=== PATIENT | female | born 1995 | race Caucasian/White ===

== ENCOUNTER → 2024-06-26 13:37 | Outpatient (CLI) | payer OTHER, SELFPAY ==
[2024-06-26 16:20] LABS: Urine N gonorrhoeae NOT DETECTED
[2024-06-26 16:28] LABS: Urine Chlamydia NOT DETECTED
== END ==
PROVIDERS: Visit Provider Obstetrics & Gynecology
DX: Z34.01 Encounter for supervision of normal first pregnancy, first trimester (principal); Z3A.11 11 weeks gestation of pregnancy
CPT/HCPCS: 87491; 87591

== ENCOUNTER → 2024-06-26 14:09 | Outpatient (CLI) | payer OTHER, SELFPAY ==
[2024-06-26 15:14] LABS: Natera Collection Specimen Collected
[2024-06-26 15:18] LABS: Add Manual Diff / Slide Review NO; Basophils Absolute Auto 0 /uL (0-100); Basophils Percent Auto 0.3 % (0-2); Eosinophils Absolute Auto 400 /uL (0-450); Eosinophils Percent Auto 3.2 % (2-4); Hematocrit 34.1 % (36-46); Hemoglobin 11.6 g/dL (12.0-16.0); Lymphocytes Absolute Auto 1800 /uL (1100-4500); Lymphocytes Percent Auto 15.9 % (25-40); Mean Corpuscular HGB Conc 33.9 % (30-36); Mean Corpuscular Hemoglobin 27.7 PG (26-34); Mean Corpuscular Volume 81.7 fL (80-100); Monocytes Absolute Auto 500 /uL (0-900); Monocytes Percent Auto 4.5 % (3-14); Neutrophils Absolute Auto 8800 /uL (1500-7000); Neutrophils Percent Auto 76.1 % (50-75); Platelet Count 264 X10^3/uL (150-400); Red Blood Cell Count 4.18 X10^6/uL (4.0-5.2); White Blood Cell Count 11.6 X10^3/uL (4.5-11.0)
[2024-06-26 17:56] LABS: Hepatitis B Surface Antigen NEGATIVE s/c (NEGATIVE); Rubella Antibody IgG 2.6 IU/mL (>15)
[2024-06-26 18:15] LABS: HIV 1 & 2 Ab/Ag 4th Gen Combo NEGATIVE (NEGATIVE); Hep C Virus Ab w/Reflex Quant NEGATIVE s/c (NEGATIVE)
[2024-06-27 06:37] LABS: Toxoplasma IgG Interp Negative (.); Toxoplasma gohndii IgG <3.0 IU/mL (0.0-7.1)
[2024-06-27 08:39] LABS: RPR Screen Non Reactive (Non Reactive)
[2024-06-27 09:36] LABS: Varicella IgG Antibody Reactive (Non Reactive)
[2024-06-29 11:09] LABS: Parvovirus B19 IgM 0.1 index (0.0-0.8)
== END ==
PROVIDERS: PCP Family Medicine; Referring Provider Obstetrics & Gynecology; Visit Provider Obstetrics & Gynecology
DX: Z34.01 Encounter for supervision of normal first pregnancy, first trimester (principal); Z3A.11 11 weeks gestation of pregnancy
CPT/HCPCS: 36415; 80055; 86644; 86695; 86696; 86747; 86777; 86778; 86787; 86803; 86850; 86900; 86901; 87086; 87389; 87491; 87591

== ENCOUNTER → 2024-08-18 07:02 | Outpatient (CLI) | payer OTHER, SELFPAY ==
--- NOTE | 2024-08-18 07:03 | DI.US.S_ITS ---
PROCEDURE: US OB >= 14 WEEKS FETUS INDICATIONS: 20 week anatomy scan OUTSIDE/PRIOR DATING DATA: Last menstrual period (LMP): 04/09/2024. LMP-based estimated date of delivery (KYLIE): 01/14/2025. First dating scan (date and location): Unknown. Estimated date of delivery (KYLIE) from first dating scan: Unknown. The calculations are made using the clinical KYLIE of 01/14/2025. TECHNIQUE: Real-time scanning was performed of the fetus, with image documentation and biometric measurements. COMPARISON: None. FINDINGS: General: A single living intrauterine gestation is present. Presentation: Breech. Placenta: Placental position is anterior , without previa. Amniotic fluid index: 11.8 cm, normal range is 5-24 cm. Single deepest vertical pocket is 3.4 cm. heart rate: 153 beats per minute. Maternal cervical canal: 4.2 cm long. Normal lower limit is 2.5 cm. biometrics: Biparietal diameter: 4.2 cm 18 weeks 5 days Head circumference: 16.1 cm 18 weeks 6 days Abdominal circumference: 13.8 cm 19 weeks 2 days Femur length: 2.7 cm 18 weeks 1 day Clinically estimated gestational age: 18 weeks 5 days Composite gestational age from present scan: 18 weeks 5 days Estimated weight and percentile: 235 g, 47th percentile Anatomic survey: Neuro: Ventricles are non-dilated at less than 10 mm. Cisterna magna is normal at 3-11 mm. Cerebellum is normal in size and morphology. Nuchal skin fold: Normal at less than 6 mm between 14-21 weeks gestational age. Face: Nose and lips, facial profile are normal. Spine: No evidence for spina bifida. Heart: 4-chambered heart is not well seen. There are normal ventricular outflow tracts. Diaphragm: Diaphragm is intact. Stomach: Left-sided stomach is present. Kidneys: No hydronephrosis. Normal is less than 5 mm in 2nd trimester, less than 7 mm in 3rd trimester. Cord: 3-vessel cord has orthotopic insertion. Bladder: Normal in size. Extremities: All 4 extremities identified. IMPRESSION: Single live intrauterine with gestational age of 18 weeks 5 days. Four-chamber heart is suboptimally visualized. Follow-up imaging is recommended. We strive to produce accurate, complete, and clear reports of imaging services. To assist us in improving patient care, this report was composed using standard report templates and voice recognition software. Therefore, it may contain abnormal punctuation, insertions and/or omissions. Occasional wrong-word or sound-alike substitutions may occur. Though we review the report and make efforts to correct it, we do recommend that the report be read carefully in proper context to recognize any text inaccuracies. Dictated by: Cyndy Kimble M.D. on 08/18/2024 at 12:55 Approved by: Cyndy Kimble M.D. on 08/18/2024 at 13:13
== END ==
PROVIDERS: PCP Family Medicine; Referring Provider Student in an Organized Health Care Education/Training Program; Visit Provider Student in an Organized Health Care Education/Training Program
DX: Z36.0 Encounter for antenatal screening for chromosomal anomalies (principal); Z3A.18 18 weeks gestation of pregnancy
CPT/HCPCS: 76811

== ENCOUNTER → 2024-08-31 14:56 | Outpatient (CLI) | payer OTHER, SELFPAY | PROVIDERS: PCP Family Medicine; Visit Provider Obstetrics & Gynecology | DX: R82.998 Other abnormal findings in urine (principal) | CPT/HCPCS: 87086 ==

== ENCOUNTER 2024-10-01 12:18 | Outpatient (CLI) | payer OTHER, SELFPAY ==
--- NOTE | 2024-10-01 12:25 | DI.US.S_ITS ---
PROCEDURE: US OB LIMITED INDICATIONS: abdominal pain OUTSIDE/PRIOR DATING DATA: Last menstrual period (LMP): 04/09/2024. LMP-based estimated date of delivery (KYLIE): 01/14/2025. First dating scan (date and location): Unknown Estimated date of delivery (KYLIE) from first dating scan: Unknown. The calculations are made using the clinical KYLIE of 01/14/2025. TECHNIQUE: Real-time scanning was performed of the fetus, with image documentation and biometric measurements. COMPARISON: [facility], , OB >= 14 WEEKS FETUS, 08/18/2024, 7:09. FINDINGS: General: A single living intrauterine gestation is present. Presentation: Vertex. Placenta: Placental position is anterior , without previa. Amniotic fluid index: 17.5 cm, normal range is 5-24 cm. Single deepest vertical pocket is 6.6 cm. heart rate: 147 beats per minute. Maternal cervical canal: 4.2 cm long. Normal lower limit is 2.5 cm. biometrics: Clinically estimated gestational age: 25 weeks 0 days Other: 4 chambered heart is within normal limits. IMPRESSION: Single live intrauterine with gestational age of 25 weeks 0 days. No evidence of abruption. 4 chambered heart is within normal limits. We strive to produce accurate, complete, and clear reports of imaging services. To assist us in improving patient care, this report was composed using standard report templates and voice recognition software. Therefore, it may contain abnormal punctuation, insertions and/or omissions. Occasional wrong-word or sound-alike substitutions may occur. Though we review the report and make efforts to correct it, we do recommend that the report be read carefully in proper context to recognize any text inaccuracies. Dictated by: Cyndy Kimble M.D. on 10/01/2024 at 14:14 Approved by: Cyndy Kimble M.D. on 10/01/2024 at 14:20
[2024-10-01 12:51] LABS: Appearance Urine UA CLEAR; Bilirubin Urine UA NEGATIVE (NEGATIVE); Color Urine UA YELLOW; Glucose Urine UA NEGATIVE (Negative); Ketones Urine UA NEGATIVE (NEGATIVE); Leukocyte Esterase Urine UA 1+ (NEGATIVE); Nitrite Urine UA NEGATIVE (Negative); Occult Blood Urine UA NEGATIVE (Negative); Protein Urine UA NEGATIVE (Negative); Specific Gravity Urine UA <=1.005 (1.000-1.035); Urobilinogen Urine UA 0.2 E.U./dL (0.2)
[2024-10-01 13:03] LABS: Amorphous Sediment Urine 2+; Bacteria Urine Occasional (0-1); RBC Urine None Seen (0-5/HPF); Squamous Epithelial Cell Urine 1-5 /HPF (0-5/HPF); Urine Volume 10mL (spun); WBC Urine 5-10/HPF (0-5/HPF)
[2024-10-01 13:04] LABS: Culture Indicated Urine Specimen Cultured
--- NOTE | 2024-10-01 13:06 | PM.OBTRLD ---
Visit Information Visit Information Date of evaluation: 10/01/24 Primary OB Provider: Merly Dumont On-call OB Provider: Nunu Alicia Comments/Additional reasons for admission: Patient is a 29 yo G1 at 25w0d here for abdominal discomfort. Reports discomfort beginning today that is different from round ligament pain or [place]. She denies vaginal bleeding, leaking of fluid or change in discharge. No urinary symptoms. She is currently under a lot of stress at work and having significant anxiety. 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 Vital Signs Vital Signs: BP 131/64; P 94, Sp02 99%, Temp 36.4 PFSH Medical History (Updated 10/01/24 @ 13:20 by Nunu Alicia MD) Unexplained weight loss Chicken pox Surgical History (Updated 06/18/24 @ 15:46 by Lianna June RN) Nursery teeth extracted Family History (Updated 06/18/24 @ 16:20 by Lianna June RN) Mother Arthritis Sensitive skin Grandmother Arthritis Alzheimer's disease Gastrointestinal stromal tumor Grandfather Heart disease Hx of CABG Brother Type 1 diabetes Uncle Gout Aunt Scleroderma Sister Precipitous delivery Social History marital status: number of children: 0 household members: spouse lives independently: Yes caregiver/support person: No housing: house pets and animals: No education level: college (bachelor's degree) occupational status: employed (kindergarten/in service education teacher) current occupational exposures/hazards: No special leta needs: No travel history: recent (domestic and [place] only) seatbelt use: always water heater temp set < 120 deg: Yes working smoke detector in home: Yes fire extinguisher in home: Yes carbon monox detector in home: Yes firearms in home: No do you feel safe at home: Yes Smoking Status: Never smoker second hand exposure: No alcohol intake: former (rarely when not ) substance use type: does not use during the past year weight has: remained stable well-balanced diet: daily or most days daily servings fruits/ve or more times/day caffeine: Yes (aware of 200mg limit) Type(s) of exercise: walking Exam Narrative Exam Narrative: Vaginal exam with copious yellow discharge. Erythematous cervix without dilation. Objective Labs Labs: Laboratory Results - last 24 hr 10/01/24 12:40 Urine Color Yellow Urine Appearance Clear Urine pH 6.0 Ur Specific [place] <=1.005 Urine Protein Negative Urine Glucose (UA) Negative Urine Ketones Negative Urine Occult Blood Negative Urine Nitrate Negative Urine Bilirubin Negative Urine Urobilinogen 0.2 Ur Leukocyte Esterase 1+ H Urine RBC None seen Urine WBC 5-10/hpf H Ur Squamous Epith Cells 1-5 /hpf Amorphous Sediment 2+ Urine Bacteria Occasional (0-1) Ur Culture Indicated? Specimen cultured Vol Urine Centrifuged 10ml (spun) Evaluation Evaluation Baseline heart rate: 135 Variability: Average (6-10) monitor accelerations: Present Monitor Decelerations: Absent Uterine Contraction Intensity: Mild Category of Tracing: Reactive Diagnosis, Plan/Disposition Plan/Disposition Plan: Patient is a 29 yo G1 at 25w0d here for abdominal discomfort found to have BV on exam. OB US reassuring. Wet prep in wrong tube so unable to be run. -hydroxyzine 25 mg given -metronidazole 500 mg BID given -fu with ob early next week for discussion regarding working situation and safety OB Disposition: home
[2024-10-01] MEDS: hydrOXYzine 50 MG/ML INJ 25 MG IM (13:38)
== END 2024-10-01 13:40 | disposition home or self-care (01) ==
LOC: LABOR 13:38 → OB 13:58
PROVIDERS: PCP Family Medicine; Referring Provider Student in an Organized Health Care Education/Training Program; Visit Provider Student in an Organized Health Care Education/Training Program
DX: Z36.9 Encounter for antenatal screening, unspecified (principal)
CPT/HCPCS: 59025; 76815; 81001; 87086; 96372; G0378; G0379; J3410

== ENCOUNTER → 2024-10-19 11:11 | Outpatient (CLI) | payer OTHER, SELFPAY ==
[2024-10-19 12:41] LABS: Add Manual Diff / Slide Review NO; Basophils Absolute Auto 100 /uL (0-100); Basophils Percent Auto 0.8 % (0-2); Eosinophils Absolute Auto 400 /uL (0-450); Eosinophils Percent Auto 3.1 % (2-4); Hematocrit 30.3 % (36-46); Hemoglobin 10.3 g/dL (12.0-16.0); Lymphocytes Absolute Auto 1700 /uL (1100-4500); Lymphocytes Percent Auto 13.1 % (25-40); Mean Corpuscular Hemoglobin 29.5 PG (26-34); Mean Corpuscular Volume 86.9 fL (80-100); Monocytes Absolute Auto 600 /uL (0-900); Monocytes Percent Auto 4.5 % (3-14); Neutrophils Absolute Auto 10300 /uL (1500-7000); Neutrophils Percent Auto 78.5 % (50-75); Platelet Count 223 X10^3/uL (150-400); Red Blood Cell Count 3.49 X10^6/uL (4.0-5.2); Red Cell Distribution Width 14.4 % (11.6-14.8); White Blood Cell Count 13.2 X10^3/uL (4.5-11.0)
[2024-10-19 12:54] LABS: GTT (PREG) 1 Hour PP 50gm Dose 101 mg/dL (76-139)
== END ==
PROVIDERS: PCP Family Medicine; Referring Provider Obstetrics & Gynecology; Visit Provider Obstetrics & Gynecology
DX: Z34.92 Encounter for supervision of normal pregnancy, unspecified, second trimester (principal); Z3A.26 26 weeks gestation of pregnancy
CPT/HCPCS: 36415; 82950; 85025; 86850

== ENCOUNTER → 2024-10-21 09:07 | Outpatient (CLI) | payer OTHER, SELFPAY ==
[2024-10-22 13:10] LABS: Candida species Negative (Negative); Gardnerella vaginalis Positive (Negative); Trichomoas vaginalis Negative (Negative)
== END ==
PROVIDERS: PCP Family Medicine; Visit Provider Obstetrics & Gynecology
DX: N76.0 Acute vaginitis (principal); B96.89 Other specified bacterial agents as the cause of diseases classified elsewhere; R82.998 Other abnormal findings in urine; R80.9 Proteinuria, unspecified
CPT/HCPCS: 87086; 87480; 87510; 87660